=== PATIENT | male | born 1970 | race Caucasian/White ===

== ENCOUNTER 2016-07-12 09:55 | Outpatient (CLI) | payer BC ==
[2016-07-12 09:55] VITALS: BP 117/74
[~2016-07-12 09:55] MED LIST: ADVAIR 250/5028 PUFF IN; HYDROCODONE 7.51 TAB PO; LEVAQUIN500 MG PO; LEVOTHYROXIN0.075 M1 PO; LEVOTHYROXIN0.175 MG PO; PRAVASTATIN 20M20 MG PO; PREDNISONE 5MG.5 MG PO; Pepcid20 MG PO; SIMVASTATIN40 MG PO; SINGULAIR10 MG PO; THEO-24400 MG PO
== END 2016-07-12 10:40 | disposition home or self-care (01) ==
LOC: COP 09:55
DX: J45.909 Unspecified asthma, uncomplicated (principal)
CPT/HCPCS: J2357

== ENCOUNTER 2017-04-04 10:50 | Outpatient (CLI) | payer BC ==
[2017-04-04 12:04] VITALS: BP 118/71
== END 2017-04-04 12:17 | disposition home or self-care (01) ==
LOC: COP 10:50
DX: J45.909 Unspecified asthma, uncomplicated (principal)
CPT/HCPCS: J2357

== ENCOUNTER 2017-04-19 12:15 | Outpatient (CLI) | payer BC ==
[2017-04-19 11:25] VITALS: BP 110/67
== END 2017-04-19 12:35 | disposition home or self-care (01) ==
LOC: COP 12:15
DX: J45.909 Unspecified asthma, uncomplicated (principal)
CPT/HCPCS: J2357

== ENCOUNTER 2017-05-02 11:00 | Outpatient (CLI) | payer BC ==
[2017-05-02 11:45] VITALS: BP 101/68
== END 2017-05-02 12:00 | disposition home or self-care (01) ==
LOC: COP 11:00
DX: J45.909 Unspecified asthma, uncomplicated (principal)
CPT/HCPCS: J2357

== ENCOUNTER 2017-05-11 22:12 | Observation (INO) | payer BC ==
[~2017-05-11] VITALS: Ht 182.9 cm; Wt 105.0 kg
[2017-05-11 22:14] VITALS: BP 104/66
--- OUTSIDE RECORDS SUMMARY | 2017-05-11 22:18 | External Medical Summary Rpt | CCD ---
Demographics Preferred Language Iraqi Marital Status Unknown Orthodox Affiliation Unknown Race Unknown Ethnic Group Unknown Author Author , CORINE POOL Address Unknown Phone Immunization No patient found.
--- OUTSIDE RECORDS SUMMARY | 2017-05-11 22:18 | External Medical Summary Rpt | CCD ---
Author Author CORINE Address Unknown Phone Purpose Continuity of Care Document - 12-23-2016 through 2016
--- OUTSIDE RECORDS SUMMARY | 2017-05-11 22:18 | External Medical Summary Rpt | CCD ---
Author Author CORINE Address Unknown Phone [email or web address] Purpose Continuity of Care Document - 12-23-2016 through 2016
--- OUTSIDE RECORDS SUMMARY | 2017-05-11 22:18 | External Medical Summary Rpt | CCD ---
Demographics Preferred Language Rwandan Marital Status Unknown Confucianism Affiliation Unknown Race Unknown Ethnic Group Unknown Author Author , CORINE POOL Address Unknown Phone Immunization No patient found.
--- OUTSIDE RECORDS SUMMARY | 2017-05-11 22:18 | External Medical Summary Rpt | CCD ---
Author Author [employer] Organization [employer] Address Unknown Phone Unavailable Purpose Continuity of Care Document - through 2016
--- OUTSIDE RECORDS SUMMARY | 2017-05-11 22:19 | External Medical Summary Rpt ---
Author Author CORINE Jarquin, [employer] Organization [employer] Address Unknown Phone Unavailable Results Comprehensive metabolic 2000 panel in Serum or Plasma Observa Value Referen Units Interpr Notes Date tion ce etation Range Albumin/G 1.1 - 1.8 No Low No Dec 15 lobulin informati informati 2017 9:26 [Mass on in on in AM ratio] in source source Serum or data data Plasma Albumin 3.4 - 5.0 gm/dL Normal No Dec 15 [Mass/vol informati 2017 9:26 ume] in on in AM Serum or source Plasma data Alkaline 46 - 116 U/L Normal No Dec 15 phosphata informati 2017 9:26 se on in AM [Enzymati source c data activity/ volume] in Serum or Plasma Bilirubin 0.2 - 1.0 mg/dL Normal No Dec 15 .total informati 2017 9:26 [Mass/vol on in AM ume] in source Serum or data Plasma Urea 7 - 18 mg/dL Normal No Dec 15 nitrogen informati 2017 9:26 [Mass/vol on in AM ume] in source Serum or data Plasma Calcium 8.5 - mg/dL Normal No Dec 15 [Mass/vol 10.1 informati 2017 9:26 ume] in on in AM Serum or source Plasma data Chloride 98 - 107 mmoL/L Normal No Dec 15 [Moles/vo informati 2017 9:26 lume] in on in AM Serum or source Plasma data Carbon 21.0 - mmoL/L Normal No Dec 15 dioxide, 32.0 informati 2017 9:26 total on in AM [Moles/vo source lume] in data Serum or Plasma Creatinin 0.70 - mg/dL Normal No Dec 15 e 1.30 informati 2017 9:26 [Mass/vol on in AM ume] in source Serum or data Plasma Estimated >60 ML/MIN No REFERENCE Lucien 15 informati RANGE: 2017 9:26 glomerula on in >60 AM r source ML/MIN/1. filtratio data 73 SQUARE n rate METERSIf (GF this patient is -A merican, then multiply theresult by 1.210. Globulin 1.3 - 3.2 gm/dL High No Dec 15 [Mass/vol informati 2016 9:26 ume] in on in AM Serum source data Glucose 74 - 106 mg/dL Normal No Dec 15 [Mass/vol informati 2016 9:26 ume] in on in AM Serum or source Plasma data Potassium 3.5 - 5.1 mmoL/L Normal No Dec 23 informati 2016 9:26 [Moles/vo on in AM lume] in source Serum or data Plasma Sodium 136 - 145 mmoL/L Normal No Dec 15 [Moles/vo informati 2016 9:26 lume] in on in AM Serum or source Plasma data Aspartate 15 - 37 U/L Low No Dec 23 informati 2016 9:26 aminotran on in AM sferase source [Enzymati data c activity/ volume] in Serum or Plasma Alanine 12 - 78 U/L Normal No Dec 23 aminotran informati 2016 9:26 sferase on in AM [Enzymati source c data activity/ volume] in Serum or Plasma Protein 6.4 - 8.2 gm/dL Normal No Dec 15 [Mass/vol informati 2016 9:26 ume] in on in AM Serum or source Plasma data Lipid 1996 panel in Serum or Plasma Observa Value Referen Units Interpr Notes Date tion ce etation Range Cholester < 200 mg/dL No No Dec 15 ol informati informati 2016 9:26 [Moles/vo on in on in AM lume] in source source Unspecifi data data ed specimen Cholester 40 - 60 MG/DL Normal No Dec 23 ol in HDL informati 2016 9:26 on in AM [Mass/vol source ume] in data Serum or Plasma Cholester 0 - 130 mg/dL Normal No Dec 15 ol in LDL informati 2016 9:26 on in AM [Mass/vol source ume] in data Serum or Plasma by calcjulissa on Triglycer 30 - 200 mg/dL Normal No Dec 15 jennifer informati 2017 9:26 [Moles/vo on in AM lume] in source Serum or data Plasma Cholester 0 - 40 No Normal No Dec 15 ol in informati informati 2016 9:26 VLDL on in on in AM [Mass/vol source source ume] in data data Serum or Plasma Prostate specific Ag [Mass/volume] in Cerebral spinal fluid Observa Value Referen Units Interpr Notes Date tion ce etation Range Prostate 0.0 - 4.0 ng/mL Normal No Dec 23 specific informati 2016 9:26 Ag on in AM [Mass/vol source ume] in data Cerebral spinal fluid Thyrotropin [Units/volume] in Serum or Plasma Observa Value Referen Units Interpr Notes Date tion ce etation Range Thyrotrop 0.358 - uIU/ml No No Dec 23 in 3.740 informati informati 2016 9:26 [Units/vo on in on in AM lume] in source source Serum or data data Plasma
--- OUTSIDE RECORDS SUMMARY | 2017-05-11 22:19 | External Medical Summary Rpt ---
Author Author CROINE Jarquin, [employer] Organization [employer] Address [...]
--- NOTE | 2017-05-11 22:27 | Emergency Room Report ---
History of Present Illness Time Seen by [id number] Presenting Problem in Triage Pt arrived:Walked Presenting Problem:HAS HAD HEAVY COUGHING AND SOA TODAY. COUGHED "UNTIL HE PASSED OUT 5 OR 6 TIMES." Onset of symptoms date/time:05/11/1707/27/799 or onset unknown for: Treatment Prior to Arrival: [facility] Provided by: Sepsis Risk Assessment: Temp: 98.6 B/P: 104/66 MAP: 78 Pulse: 120 Resp: 22 Recent fever? N Clinical Suspician of Infection? N Mental Status: 1 - Regular (Normal Baseline) Sepsis Risk:Possible Sepsis Risk Have you (or family members/close friends) recently traveled outside the [place]? N If Yes, where/when: Have you had exposure to infectious disease within the past month? TB? Other? Specify: Source patient, RN notes reviewed, family, old records Exam Limitations no limitations Comment pt with sob and wheezing and had several post tussive syncopal episodes tonight- no def chest pain - no sz and no hemoptysis or rash - pt had had an episode in past and saw pcp- Cardiac Chest Pain Chest pain indicative of cardiac No Timing/Duration this evening Severity moderate ALLERGIES Coded Allergies: aspirin (CONTINUOUS SINUS DRAINAGE 12/16/15) Home Medications Reported Medications Simvastatin (Simvastatin 40MG Tab) 40 MG PO QHS Montelukast Sodium (Singulair) 10 MG PO QHS Levothyroxine Sodium (Levothyroxine 0.075MG) 150 MCG PO DAILY FLUTICASONE/SALMETEROL (Advair 250-50 Diskus) 1 PUFF IN BID Prednisone (Prednisone 5MG) 5 MG PO DAILY History Medical History General CAD? No Angina: No MS: No Hypertension? No Hyperlipidemia? Yes CHF? No DVT? No PE? No COPD? Yes Asthma? Yes Anemia? No GERD? No Gastric ulcers? No GI Bleed? No Hernia? No Thyroid Problems? Yes Hypothyroidism? Yes CVA? No Seizures? No Diabetes? No Renal Insuffiency? No End Stage Renal Disease? No UTI? No Stones? Yes BPH? No GB Disease: No Nephritic Syndrome? No Asplenia? No Hepatitis? No Sickle Cell Disease? No Arthritis? No Migraines? No Cataracts? No Glaucoma? No MRSA? No HIV? No TB? No Anxiety? No Depression? No Cancer? No Immunization Hx DT/Tetanus 5-10 YRS Flu THISFLUSEA Pneumonia 09/11/11 Surgical Hx Previous Surgery?Y Back KIDNEY STONES Family History Family Hx Diabetes No CAD No Hypertension No Hyperlipidemia No Cancer No TB No Social History Smoking Hx Smoker: Current Every Day Smoker Tobacco: Yes Type Cigarettes Packs/day 1 1/2 - 2 Packs Alcohol Alcohol: No Drugs none Review of Systems All Other Systems Reviewed and Negative Constitutional denies fever Eyes denies drainage ENT denies: ear discharge, epistaxis, throat pain. Respiratory cough, shortness of breath, denies wheezing Cardiovascular see HPI, denies chest pain, denies palpitations, syncope Gastrointestinal denies abdominal pain, denies diarrhea, denies vomiting Genitourinary denies: dysuria, frequency, hesitancy, hematuria. Musculoskeletal denies back pain, denies joint pain, denies joint swelling, denies neck pain Skin denies rash Psychiatric/Neurological denies headache, denies seizure Physical Exam Vital Signs Vital Signs Date Time Temp Pulse Resp B/P Pulse O2 O2 Flow FiO2 Ox Delivery Rate 05/12 0018 91 20 138/79 92 05/11 2341 91 20 142/74 94 05/11 2306 120 20 140/74 91 05/11 2239 105 20 130/78 91 05/11 2214 98.6 120 22 104/66 87 - WBC >12,000 or <4,000 or 10% bands? 2 or more SIRS Criteria Met? B/P:138/79 MAP:78 Creatinine >2.0? UA output<0.5ml/kg/hr for 2 hrs? Platelet count >100,000? Lactate >2.0mmol/1? INR >1.2 or PTT > than 60 sec? Evidence of Organ Dysfunction? Provider documented clinical suspician of infection? N Sepsis Criteria Count: 2 Sepsis Risk: Possible Sepsis Risk General Appearance no apparent distress Eye Exam - bilateral eye PERRL, bilateral eye EOMI Ear, Nose, Throat normal ENT inspection Neck supple Respiratory Status No: respiratory distress. Lung Sounds bilateral: decreased breath sounds, rhonchi, wheezing. 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 No Results/Orders Laboratory Tests 05/11/172231: Influenza Type A Ag NOT DETECTED, Influenza Type B Ag NOT DETECTED 05/11/172219: Lactic Acid 1.2 05/11/172219: B-Natriuretic Peptide 10 05/11/172219: Sodium 136, Potassium 3.6, Chloride 101, Carbon Dioxide 29, BUN 17, Creatinine 1.1, Estimated Creat Clear 123, Estimated GFR (MDRD) 71, Glucose 147 H, Calcium 8.8, Total Bilirubin 0.4, AST 18, ALT 25, Alkaline Phosphatase 81, Creatine Kinase 102, CK-MB (CK-2) Rel Index 0.6, CK and CKMB Interp 0.6, Troponin I < 0.02, Total Protein 7.7, Albumin 3.8, Globulin 3.9 H, Albumin/Globulin Ratio 1.0 L, D-Dimer 253, WBC 12.6 H, RBC 4.72, Hgb 14.2, Hct 42.5, MCV 90.1, RDW 13.1, Plt Count 257, MPV 8.3, Gran % 81.2 H, Gran # 10.3 H, Lymphocytes % 11.2 , Monocytes % 6.2, Eosinophils % 1.1, Basophils % 0.2, Lymphocytes # 1.4, Monocytes # 0.8, Eosinophils # 0.1, Basophils # 0.0, PUBS MCHC 33.4, MCH 30.1 Current Medication Orders Sig/Fan Start time Last Medication Dose Route Stop Time Status Admin Azithromycin 500 MG ONCE ONE 05/12 45 AC Sodium Chloride 250 ML IV 05/12 144 Ceftriaxone Sodium 1 GM ONCE ONE 05/12 45 AC 05/12 Sodium Chloride 50 ML IV 05/12 Methylprednisolone 125 MG ONCE ONE 05/12 45 AC 05/12 Sodium Succinate IV 05/12 Ceftriaxone Sodium 0 .STK-MED ONE 05/12 40 DC IV Methylprednisolone 0 .STK-MED ONE 05/12 40 DC Sodium Succinate .ROUTE Sodium Chloride 50 ML .STK-MED ONE 05/12 40 DC IV Furosemide 40 MG ONCE ONE 05/11 2300 DC 05/11 IV 11/01 2301 2302 Furosemide 0 .STK-MED ONE 05/11 2259 DC .ROUTE Sodium Chloride 1,000 ML .STK-MED ONE 05/11 2231 DC IV Sodium Chloride 1,000 ML .Q4H 05/11 2230 AC 05/11 IV 05/12 229 2237 Sodium Chloride 10 ML PRN PRN 05/11 2230 AC IV 05/12 2230 Orders Procedure Date/time Status UPPER RESPIRATORY PANEL, PCR 05/12 0042 Active Decision to admit 05/12 33 Active BRAIN NATRIURETIC PEPTIDE 05/11 2258 Complete D-DIMER 05/11 2245 Complete INFLUENZA A&B ANTIGENS 05/11 2227 Complete ELECTROCARDIOGRAM REQUEST 05/11 2220 Active CHEST(2 VIEWS-NOT PORTABLE) 05/11 2220 Active IV SALINE LOCK 05/11 2220 Active CULTURE, BLOOD 05/11 2220 Active LACTIC ACID 05/11 2220 Complete CBC WITH AUTO DIFF 05/11 2220 Complete CARDIAC ENZYMES 05/11 2220 Complete CHEM 12 PROFILE 05/11 2220 Complete CM/EKG 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 ST/Twave chgs XRAY/CT/US XRAY/CT/US XRAY chest XR interpretation by reviewed by me Xray Results abnormal (vol overlode and rt cap) Departure Departure Time of Disposition 0018 Disposition Still a Patient Clinical Impression Primary Impression: CAP (community acquired pneumonia) Qualifiers: Laterality: right Lung location: lower lobe of lung Qualified Code: J18.1 - Lobar pneumonia, unspecified organism Secondary Impressions: Post-tussive syncope Condition STABLE Referrals LISANDRO ROBERTS (Family) discussed with dr velazco ED Critical Care Critical Care No at 0045
[2017-05-11 22:36] LABS: HEMOGLOBIN 14.2 g/dL (14.1-18.0); LYMPH # 1.4 K/mm3 (0.7-4.5); LYMPH % 11.2 % (10-50)
[2017-05-11 22:59] LABS: BUN 17 mg/dL (7-18)
[2017-05-11 23:00] LABS: GFR (ESTIMATED) 71 ML/MIN (>60)
--- OUTSIDE RECORDS SUMMARY | 2017-05-12 00:42 | External Medical Summary Rpt | CCD ---
Author Author , CORINE Organization CORINE Address Unknown Phone [email or web address] Purpose Continuity of Care Document - 12-23-2016 through 2016 Results Labs Lab Lab Date Result Refere Interp Status Commen Order Detail nces retati t Range on Influenza A and B virus antigen assay (05-11-2017 22:32) Influen NOT NOT complet za A ag 017 DETECTE DETECTD ed QL 22:32 D NOT DETECTE D L Comment: Influen NOT NOT complet za 017 DETECTE DETECTD ed virus B 22:32 D NOT DETECTE antigen D L detecti on Influenza virus A+B Ag [Presence] in Unspecified specimen (05-11-2017 22:32) Influen NOT NOT complet za 017 DETECTE DETECTD ed virus A 22:32 D Ag [Presen ce] in Unspeci fied specime n Influen NOT NOT complet za 017 DETECTE DETECTD ed virus B 22:32 D Ag [Presen ce] in Unspeci fied specime n Brain natriuretic peptide (05-11-2017 22:20) Brain = 10 0-100 complet natriur 017 pg/mL ed etic 22:20 peptide D-dimer (05-11-2017 22:20) D-dimer = 253 0-400 complet 017 ng/mL ed 22:20 Comment: The D-Dimer values are presented in units of mass(ng/mL) of Comment: D-Dimer units(DDU). Comment: Comment: This test has been FDA approved as an aid in the assessment Comment: and evaluation of suspected DIC, and thromboembolic events Comment: including PE and DVT. However, it does not have approval Comment: for cut-off values for the exclusion of these conditions. Comprehensive metabolic panel (05-11-2017 22:20) Protein = 7.7 6.4-8.2 complet total 017 gm/dL ed ser/celina 22:20 s ALT = 25 12-78 complet (SGPT) 017 U/L ed ser/celina 22:20 s Serum = 18 15-37 complet or 017 U/L ed plasma 22:20 asparta te aminotr ansfera Serum = 136 136-145 complet sodium 017 mmoL/L ed measure 22:20 ment Serum = 3.6 3.5-5.1 complet potassi 017 mmoL/L ed um 22:20 measure ment Serum = 147 74-106 complet or 017 mg/dL ed plasma 22:20 glucose measure ment (mas Serum = 3.9 1.3-3.2 complet globuli 017 gm/dL ed n 22:20 measure ment (mass/v olume) Estimat = 71 >60 complet ed 017 ML/MIN ed glomeru 22:20 lar filtrat ion rate (GF Comment: REFERENCE RANGE: >60 ML/MIN/1.73 SQUARE METERS Comment: If this patient is -[place], then multiply the Comment: result by 1.210. Estimat = 123 50-200 complet ion of 017 ML/MIN ed creatin 22:20 ine renal clearan ce Serum = 1.1 0.70-1. complet or 017 mg/dL 30 ed plasma 22:20 creatin ine measure ment ( Carbon = 29 21.0-32 complet dioxide 017 mmoL/L .0 ed 22:20 measure ment Serum = 101 98-107 complet or 017 mmoL/L ed plasma 22:20 chlorid e measure ment (mo Serum = 8.8 8.5-10. complet or 017 mg/dL 1 ed plasma 22:20 calcium measure ment (mas Serum = 17 7-18 complet or 017 mg/dL ed plasma 22:20 urea nitroge n measure men Serum = 0.4 0.2-1.0 complet or 017 mg/dL ed plasma 22:20 total bilirub in measure m Serum = 81 46-116 complet or 017 U/L ed plasma 22:20 alkalin e phospha tase floresita Serum = 3.8 3.4-5.0 complet or 017 gm/dL ed plasma 22:20 albumin measure ment (mas Serum = 1.0 1.1-1.8 complet or 017 ed plasma 22:20 albumin /globul in mass ra Cardiac enzymes (05-11-2017 22:20) Serum < 0.02 0.00-0. complet or 017 ng/mL 06 ed plasma 22:20 troponi n i.cardi ac measu Serum = 102 39-308 complet or 017 U/L ed plasma 22:20 creatin e kinase measure m Serum = 0.6 0.0-3.6 complet or 017 ng/mL ed plasma 22:20 creatin e kinase MB measu Serum = 0.6 0-4.0 complet or 017 U/L ed plasma 22:20 creatin e kinase MB (CK-M Blood lactic acid measurement (moles/vol (05-11-2017 22:20) Blood = 1.2 0.4-2.0 complet lactic 017 mmol/L ed acid 22:20 measure ment (moles/ vol CBC w auto diff (05-11-2017 22:20) Absolut = 0.8 0.1-1.0 complet e 017 K/mm3 ed monocyt 22:20 e count Automat = 90.1 82.2-97 complet ed 017 fl .8 ed erythro 22:20 cyte mean corpusc ular v Automat = 33.4 31.8-35 complet ed 017 g/dl .4 ed erythro 22:20 cyte mean corpusc ular h Mean = 30.1 27-31.2 complet corpusc 017 pg ed ular 22:20 hemoglo bin (MCH) determ Lymphoc = 11.2 10-50 complet yte 017 % ed count, 22:20 blood, automat ed Absolut = 1.4 0.7-4.5 complet e 017 K/mm3 ed lymphoc 22:20 yte count Blood = 14.2 14.1-18 complet hemoglo 017 g/dL .0 ed bin 22:20 measure ment (mass/v olum Blood = 42.5 42.0-52 complet hematoc 017 % .0 ed rit 22:20 (volume fractio n) Granulo = 81.2 37.0-80 complet cyte 017 % .0 ed percent 22:20 age Blood = 10.3 1.3-8.0 complet granulo 017 K/mm3 ed cytes 22:20 automat ed count (numb Automat = 1.1 % 0.1-12. complet ed 017 0 ed blood 22:20 eosinop hils/10 0 leukocy t Automat = 0.1 0.0-0.4 complet ed 017 K/mm3 ed blood 22:20 eosinop hil count Baso % = 0.2 % 0.1-2.0 complet 017 ed 22:20 Automat = 0.0 0-0.2 complet ed 017 K/MM3 ed blood 22:20 basophi l count (count/ vo Blood = 12.6 4.8-10. complet leukocy 017 K/MM3 8 ed courtney 22:20 count (number /volume ) Automat = 13.1 11.5-17 complet ed 017 % .5 ed erythro 22:20 cyte distrib ution width Red = 4.72 4.6-6.2 complet blood 017 M/mm3 ed cell 22:20 count Blood = 257 142-424 complet platele 017 K/mm3 ed t count 22:20 Automat = 8.3 7.4-10. complet ed 017 fl 4 ed blood 22:20 platele t mean volume floresita Kingsbury % = 6.2 % 1.7-9.3 complet 017 ed 22:20
--- OUTSIDE RECORDS SUMMARY | 2017-05-12 00:42 | External Medical Summary Rpt | CCD ---
Author Author , CORINE Organization CORINE Address Unknown Phone [email or web address] Purpose Continuity of Care Document - [...] SQUARE METERS Comment: If this patient is -[place] Citizen, then multiply the Comment: result by 1.210. [...] blood 22:20 platele t mean volume floresita Braxton % = 6.2 % 1.7-9.3 complet 017 ed 22:20
--- OUTSIDE RECORDS SUMMARY | 2017-05-12 00:43 | External Medical Summary Rpt | CCD ---
Demographics Preferred Language Lebanese Marital Status Unknown Buddhism Affiliation Unknown Race Unknown Ethnic Group Unknown Author Author , CORINE POOL Address Unknown Phone Immunization No patient found.
--- OUTSIDE RECORDS SUMMARY | 2017-05-12 00:43 | External Medical Summary Rpt ---
Author Author [employer], [employer] Organization [employer] Address Unknown Phone Unavailable Results Influenza virus A+B Ag [Presence] in Unspecified specimen Observa Value Referen Units Interpr Notes Date tion ce etation Range Influen NOT NOT No No Nov za DETECTE DETECTD informa informa 2017 virus A D tion in tion in 10:32 Ag source source PM [Presen data data ce] in Unspeci fied specime n Influen NOT NOT No No No Nov za DETECTE DETECTD informa informa informa 2017 virus B D tion in tion in tion in 10:32 Ag source source source PM [Presen data data data ce] in Unspeci fied specime n Natriutietic peptide B [Mass/volume] in Serum or Plasma Observa Value Referen Units Interpr Notes Date tion ce etation Range Natriutie 0 - 100 pg/mL Normal No Nov 1 tic informati 2017 peptide B on in 10:20 PM source [Mass/vol data ume] in Serum or Plasma Fibrin D-dimer FEU [Mass/volume] in Platelet poor plasma Observa Value Referen Units Interpr Notes Date tion ce etation Range Fibrin 0 - 400 ng/mL Normal The May 11 D-dimer D-Dimer 2017 FEU values 10:20 PM [Mass/vol are ume] in presented Platelet in units poor of plasma mass(ng/m L) ofD-Dimer units(DDU ).This test has been FDA approved as an aid in the assessmen tand evaluatio n of suspected DIC, and thromboem bolic eventsinc luding PE and DVT. However, it does not have approvalf or cut-off values for the exclusion of these condition s. Lactate [Moles/volume] in Blood Observa Value Referen Units Interpr Notes Date tion ce etation Range Lactate 0.4 - 2.0 mmol/L Normal No Nov 1 [Moles/vo informati 2017 lume] in on in 10:20 PM Blood source data CBC W Auto Differential panel in Blood Observa Value Referen Units Interpr Notes Date tion ce etation Range Basophils 0 - 0.2 K/MM3 Normal No May 1 2016 [#/volume on in 10:20 PM ] in source Blood by data Automated count Basophils 0.1 - 2.0 % Normal No May 11 /100 inform2016 leukocyte on in 10:20 PM s in source Blood by data Automated count Eosinophi 0.0 - 0.4 K/mm3 Normal No May 11 ls 2016 [#/volume on in 10:20 PM ] in source Blood by data Automated count Eosinophi 0.1 - % Normal No May 11 ls/100 12.0 inform2016 leukocyte on in 10:20 PM s in source Blood by data Automated count Granulocy 1.3 - 8.0 K/mm3 High No May 11 courtney 2016 [#/volume on in 10:20 PM ] in source Blood by data Automated count Granulocy 37.0 - % High No May 11 courtney/100 80.0 2016 leukocyte on in 10:20 PM s in source Blood by data Automated count Hematocri 42.0 - % Normal No May 11 t [Volume 52.0 2016 on in 10:20 PM Fraction] source of Blood data Hemoglobi 14.1 - g/dL Normal No May 11 n 18.0 2016 [Mass/vol on in 10:20 PM ume] in source Blood data Lymphocyt 0.7 - 4.5 K/mm3 Normal No May 11 es 2016 [#/volume on in 10:20 PM ] in source Unspecifi data ed specimen by Automated count Lymphocyt 10 - 50 % Normal No May 11 es 2016 [#/volume on in 10:20 PM ] in source Unspecifi data ed specimen by Automated count Erythrocy 27 - 31.2 pg Normal No May 11 te mean 2016 corpuscul on in 10:20 PM ar source hemoglobi data n [Entitic mass] Erythrocy 31.8 - g/dl Normal No May 11 te mean 35.4 inform2016 corpuscul on in 10:20 PM ar source hemoglobi data n concentra tion [Mass/vol ume] by Automated count Erythrocy 82.2 - fl Normal No May 11 te mean 97.8 inform2016 corpuscul on in 10:20 PM ar volume source [Entitic data volume] by Automated count Monocytes 0.1 - 1.0 K/mm3 Normal No May 11 informati 2016 [#/volume on in 10:20 PM ] in source Blood by data Automated count Monocytes 1.7 - 9.3 % Normal No May 1 /100 informati 2017 leukocyte on in 10:20 PM s in source Blood by data Automated count Platelet 7.4 - fl Normal No May 11 mean 10.4 informati 2016 volume on in 10:20 PM [Entitic source volume] data in Blood by Automated count Platelets 142 - 424 K/mm3 Normal No May 11 informati 2016 [#/volume on in 10:20 PM ] in source Blood data Erythrocy 4.6 - 6.2 M/mm3 Normal No May 11 courtney informati 2016 [#/volume on in 10:20 PM ] in source Amniotic data fluid Erythrocy 11.5 - % Normal No May 11 te 17.5 informati 2016 distribut on in 10:20 PM ion width source [Entitic data volume] by Automated count Leukocyte 4.8 - K/MM3 High No May 11 s 10.8 informati 2016 [#/volume on in 10:20 PM ] in source Blood data Comprehensive metabolic 2000 panel in Serum or Plasma Observa Value Referen Units Interpr Notes Date tion ce etation Range Albumin/G 1.1 - 1.8 No Low No Dec 15 lobulin informati informati 2016 9:26 [Mass on in on in AM ratio] in source source Serum or data data Plasma Albumin 3.4 - 5.0 gm/dL Normal No Dec 23 [Mass/vol informati 2016 9:26 ume] in on in AM Serum or source Plasma data Alkaline 46 - 116 U/L Normal No Dec 15 phosphata informati 2016 9:26 se on in AM [Enzymati source [...] Calcium 8.5 - mg/dL Normal No Dec 23 [Mass/vol 10.1 informati 2017 9:26 ume] in on in AM Serum or source Plasma data Chloride 98 - 107 mmoL/L Normal No Dec 15 [Moles/vo informati 2016 9:26 lume] in on in AM Serum or source Plasma data Carbon 21.0 - mmoL/L Normal No Dec 23 dioxide, 32.0 informati 2016 9:26 total on in AM [Moles/vo source lume] in data Serum or Plasma Creatinin 0.70 - mg/dL Normal No Dec 23 e 1.30 informati 2016 9:26 [Mass/vol on in AM ume] in source Serum or data Plasma Estimated >60 ML/MIN No REFERENCE Dec 23 informati RANGE: 2017 9:26 glomerula on in >60 AM r source ML/MIN/1. filtratio data 73 SQUARE n rate METERSIf (GF this patient is -A merican, then multiply theresult by 1.210. Globulin 1.3 - 3.2 gm/dL High No Dec 23 [Mass/vol informati 2016 9:26 ume] in on [...] Cholester < 200 mg/dL No No Dec 23 ol informati informati 2016 9:26 [Moles/vo on in on in AM lume] in source source Unspecifi data data ed specimen Cholester 40 - 60 MG/DL Normal No Dec 15 ol in HDL informati 2016 9:26 on in AM [Mass/vol source ume] in data Serum or Plasma Cholester 0 - 130 mg/dL Normal No Dec 15 ol in LDL informati 2016 9:26 on in AM [Mass/vol source ume] in data Serum or Plasma by calculati on Triglycer 30 - 200 mg/dL Normal No Dec 15 jennifer informati 2016 9:26 [Moles/vo on in AM [...] 0.0 - 4.0 ng/mL Normal No Dec 15 specific informati 2016 9:26 Ag on in AM [Mass/vol source ume] in data Cerebral spinal fluid Thyrotropin [Units/volume] in Serum or Plasma Observa Value Referen Units Interpr Notes Date tion ce etation Range Thyrotrop 0.358 - uIU/ml No No Dec 15 in 3.740 informati informati 2017 9:26 [Units/vo on in on in AM lume] in source source Serum or data data Plasma
--- OUTSIDE RECORDS SUMMARY | 2017-05-12 00:43 | External Medical Summary Rpt | CCD ---
Demographics Preferred Language Mozambican Marital Status Unknown Yazidism Affiliation Unknown Race Unknown Ethnic Group Unknown Author Author , [facility] [employer] Address Unknown Phone Immunization No patient found.
[2017-05-12 00:50] LABS: CORONAVIRUS 229E NOT DETECTED (NOT DETECTE); CORONAVIRUS HKU 1 NOT DETECTED (NOT DETECTE); CORONAVIRUS NL63 NOT DETECTED (NOT DETECTE); CORONAVIRUS OC43 NOT DETECTED (NOT DETECTE)
[2017-05-12 01:18] VITALS: BP 115/72
[2017-05-12 01:28] VITALS: BP 116/74
[2017-05-12 04:17] VITALS: BP 121/52
[2017-05-12 06:13] LABS: RHINOVIRUS/ENTEROVIRUS DETECTED (NOT DETECTE)
--- NOTE | 2017-05-12 06:26 | RADIOLOGY REPORT PS360 ---
CHEST(2 VIEWS-NOT PORTABLE) HISTORY: SOB ORDERING PHYSICIAN: Elina Paulino MD PATIENT AGE: 47 years COMPARISON: None available FINDINGS: The cardiomediastinal silhouette and pulmonary vascularity are within normal limits. The lungs are clear without infiltrates, suspicious nodules, or pleural effusions. There is mild coarsening of the bronchovascular markings suggesting peribronchial inflammatory changes. No acute bony abnormalities. IMPRESSION: Nonspecific coarsening of the bronchovascular markings which may be seen with air bronchial inflammatory change/bronchitis. No lobar consolidation or collapse
[2017-05-12 07:28] VITALS: BP 97/55
[2017-05-12 07:38] LABS: HEMOGLOBIN 13.6 g/dL (14.1-18.0); LYMPH # 0.9 K/mm3 (0.7-4.5); LYMPH % 11.1 % (10-50)
--- NOTE | 2017-05-12 07:48 | PHARMACY CLINIC NOTE ---
Patient Demographics Patient Demographics Admission date: 05/12/17 Date: 05/12/17 Time: 0747 Allergies Coded Allergies: aspirin (CONTINUOUS SINUS DRAINAGE 12/16/15) HEIGHT- FT: 6 IN: 0.00 K.951 VTE General Information Labs: Laboratory Tests 05/12 05/11 0701 2220 Hematology Hgb (14.1 - 18.0 g/dL) 13.6 L 14.2 Hct (42.0 - 52.0 %) 42.0 42.5 Plt Count (142 - 424 K/mm3) 239 257 Disclaimer The following section includes nursing documentation that has been pulled in for pharmacy review. Patient's VTE score: 3 Patient's VTE Risk: LOW RISK Clinical trial participant? No VTE prophylaxis [id number] VTE prophylaxis ordered? Yes Type of prophylaxis/treatment: DAGO at 0748
[2017-05-12 08:12] LABS: BUN 15 mg/dL (7-18)
[2017-05-12 08:24] LABS: GFR (ESTIMATED) 79 ML/MIN (>60)
[2017-05-12] MEDS ORDERED: AZELASTINE137 MCG/SP (08:52)
[2017-05-12] MEDS ORDERED: XYZAL5 MG PO (08:52)
[2017-05-12] MEDS ORDERED: ADVAIR DISK28 PUFFS IN (08:52)
[2017-05-12] MEDS ORDERED: XOLAIR150 MG SC (08:53)
[2017-05-12] MEDS ORDERED: ALBUTEROL2.5 MG/NEB INH (08:53)
--- NOTE | 2017-05-12 08:58 | HISTORY AND PHYSICAL REPORT ---
See Addendum History and Physical ([facility]CA) Date of admission: 05/12/17 Chief complaint: SOA History: History of Present Illness: Mr. Brooks is a 47-year-old male with a history of severe asthma that is followed by Dr. Beltran in [place]. He states approx 3 days ago he began getting sinus drainage. By the next, day his chest was congested. Yesterday afternoon he tried taking neb treatments and began coughing and passed out approximately 5 times, therefore he presented to the emergency room. He he is on chronic steroids for his asthma and he states he did take approximately 60 mg of steroids before he left his house. He was also given IV steroids in the emergency room along with a neb treatment and this helped tremendously. He states he feels much better this morning and has not passed out. His coughing has improved as has his wheezing and he is anxious to go home. He had a respiratory panel that was positive for rhino/enterovirus. He was started on some Zithromax when admitted. Past Medical History: Medical History: CAD? No Angina: No TN: No Hypertension? No Hyperlipidemia? Yes CHF? No DVT? No PE? No COPD? Yes Asthma? Yes Anemia? No GERD? No Gastric ulcers? No GI Bleed? No Hernia? No Thyroid Problems? Yes Hypothyroidism? Yes CVA? No Seizures? No Diabetes? No Renal Insuffiency? No UTI? No Stones? Yes BPH? No GB Disease: No Nephritic Syndrome? No Asplenia? No Hepatitis? No Sickle Cell Disease? No Arthritis? No Migraines? No Cataracts? No Glaucoma? No MRSA? No HIV? No TB? No Anxiety? No Depression? No Cancer? No Surgical history: Previous Surgery?Y BACK KIDNEY STONES Medications: Reported Medications Simvastatin (Simvastatin 40MG Tab) 40 MG PO QHS Montelukast Sodium (Singulair) 10 MG PO QHS LEVOCETIRIZINE DIHYDROCHLORIDE (Xyzal) 5 MG PO QHS Azelastine Hcl (Azelastine Nasal [place]) 1 SPR NA DAILY FLUTICASONE/SALMETEROL (Advair 500-50 Diskus) 1 PUFF IN BID Omalizumab (Xolair) 150 MG SC Q2 WEEKS ALBUTEROL (Albuterol 0.083% Neb) 2.5 MG INH QID,PRN Prednisone (Prednisone 5MG) 5 MG PO DAILY Allergies: Coded Allergies: NSAIDS (Non-Steroidal Anti-Inflamma (05/12/17) aspirin (CONTINUOUS SINUS DRAINAGE 12/16/15) Family History: Family history: Negative for: CAD, DM, HTN, cancer, hyperlipidemia, stroke. Social History: Smoking Hx Tobacco: Yes Smoker: Current Every Day Smoker Type: Cigarettes Packs/day: < 1 Pack Are you exposed to second hand No Alcohol: Alcohol: No Hx of Drug Use: Drug Use? No Review of Systems: Constitutional Positive for: fatigue, lethargy, malaise, weak. ENT Positive for: nasal congestion, sore throat. Cardiovascular Positive for: chest pain. No: edema, palpitations. Respiratory Positive for: shortness of air, wheezing. No: productive cough (sputum). GI No: abdominal pain, diarrhea, nausea, vomitting. (male) No: frequency, hematuria. Neurological Positive for: syncope. No: dizziness, headache, seizure, weakness. Musculoskeletal No: extremity pain, joint pain, myalgias. Physical Exam: Vital signs: 1ST Vital Signs Result Date Time Pulse Ox 87 05/11 2214 B/P 104/66 05/11 2214 Temp 98.6 05/11 2214 Pulse 120 05/11 2214 Resp 22 05/11 2214 O2 Delivery ROOM AIR 05/12 011 O2 Flow Rate 2 05/12 0200 Exam: General appearance: alert, awake, no acute distress Eyes: EOM's w/normal ROM, PERRLA ENT: mucous membranes moist, nose normal, pharynx normal, tympanic membranes normal Neck: non-tender, no carotid bruit, full range of motion, supple Cardiovascular: regular rate & rhythm Respiratory: faint expiratory wheezes, no rales, good air movement ABD: non-distended, normal bowel sounds, no rebound, soft, no tenderness, no guarding Extremities: no peripheral edema Musculoskeletal: equal muscle strength, motor intact, sensation intact Skin: normal color 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, normal mood/affect, oriented, speech clear Lab data: Labs: Laboratory Tests 05/12/17 0701: Sodium 137, Potassium 3.8, Chloride 103, Carbon Dioxide 27, BUN 15, Creatinine 1.0, Estimated Creat Clear 133, Estimated GFR (MDRD) 79, Glucose 155 H, Calcium 8.7, Troponin I < 0.02, TSH 0.29 L, Thyroxine (T4) 9.1, WBC 7.9, RBC 4.57 L, Hgb 13.6 L, Hct 42.0, MCV 92.0, RDW 13.2, Plt Count 239, MPV 8.7, Gran % 87.1 H, Gran # 6.9, Lymphocytes % 11.1, Monocytes % 1.4 L, Eosinophils % 0.3, Basophils % 0.1, Lymphocytes # 0.9, Monocytes # 0.1, Eosinophils # 0.0, Basophils # 0.0, PUBS MCHC 32.5, MCH 29.9 05/12/17 0038: Chlamy pneum (TEM-PCR) NOT DETECTED, Adenovirus (PCR) NOT DETECTED, B. pertussis DNA (PCR) NOT DETECTED, Coronavirus OC43 (PCR) NOT DETECTED, Coronavirus HKU1 ( PCR) NOT DETECTED, Coronavirus 229E (PCR) NOT DETECTED, Coronavirus NL63 (PCR) NOT DETECTED, Human Metapneumovir PCR NOT DETECTED, Influenza A (H1) PCR NOT DETECTED, Influ A (H1N1/09) PCR NOT DETECTED, Influenza A (H3) PCR NOT DETECTED, Influenza Type A (PCR) NOT DETECTED, Influenza Type B (PCR) NOT DETECTED, M. pneumoniae (PCR) NOT DETECTED, Parainfluenza 1 (PCR) NOT DETECTED, Parainfluenza 2 (PCR) NOT DETECTED, Parainfluenza 3 (PCR) NOT DETECTED, Parainfluenza 4 (PCR) NOT DETECTED, RSV (PCR) NOT DETECTED, Entero/Rhino (PCR) DETECTED H 05/11/172231: Influenza Type A Ag NOT DETECTED, Influenza Type B Ag NOT DETECTED 05/11/172219: Lactic Acid 1.2 05/11/170: B-Natriuretic Peptide 10 05/11/17 2220: Sodium 136, Potassium 3.6, Chloride 101, Carbon Dioxide 29, BUN 17, Creatinine 1.1, Estimated Creat Clear 123, Estimated GFR (MDRD) 71, Glucose 147 H, Calcium 8.8, Total Bilirubin 0.4, AST 18, ALT 25, Alkaline Phosphatase 81, Creatine Kinase 102, CK-MB (CK-2) Rel Index 0.6, CK and CKMB Interp 0.6, Troponin I < 0.02, Total Protein 7.7, Albumin 3.8, Globulin 3.9 H, Albumin/Globulin Ratio 1.0 L, D-Dimer 253, WBC 12.6 H, RBC 4.72, Hgb 14.2, Hct 42.5, MCV 90.1, RDW 13.1, Plt Count 257, MPV 8.3, Gran % 81.2 H, Gran # 10.3 H, Lymphocytes % 11.2 , Monocytes % 6.2, Eosinophils % 1.1, Basophils % 0.2, Lymphocytes # 1.4, Monocytes # 0.8, Eosinophils # 0.1, Basophils # 0.0, PUBS MCHC 33.4, MCH 30.1 Microbiology 05/11 2220 BLOOD: Anaerobic Blood Culture - RECD 05/11 2220 BLOOD: Aerobic Blood Culture - RECD 05/11 2220 BLOOD: Anaerobic Blood Culture - RECD 05/11 2220 BLOOD: Aerobic Blood Culture - RECD Radiology results: Results: CXR - Nonspecific coarsening of the bronchovascular markings which may be seen with air bronchial inflammatory change/bronchitis. No lobar consolidation or collapse Diagnosis(es): 1. Post-tussive syncope Status: Acute 2. Acute asthma exacerbation Status: Acute 3. Rhinovirus infection Status: Acute Plan: Pt has rhino/enterovirus which seems to have caused an exacerbation of his asthma. After steroids and nebulizer treatments he feels much better. He can possibly be discharged home today on steroids and nebs. at 0858 at 1006
[2017-05-12] MEDS ORDERED: LEVOTHYROXINE0.15 MG PO (10:32)
[2017-05-12 11:40] VITALS: BP 101/68
[2017-05-12 12:05] LABS: CORRECTED WBC 7.8 K/mm3; NEUTROPHILS 88 % (42-76)
[2017-05-12] MEDS ORDERED: PREDNISONE 20MG20 MG PO (13:19)
[2017-05-12 14:00] VITALS: BP 101/68
--- NOTE | 2017-05-12 17:45 | RADIOLOGY REPORT PS360 ---
PROCEDURE: 2-D M-mode and color Doppler study INDICATIONS FOR THE TEST: Chest pain COPD Heart MurmurX Tobacco SmokingX Palpitations Fatigue Syncope Edema Hypertension Diabetes Mellitus Rheumatic Fever SOBXDOE Obesity Hyperlipidemia Family History HD Additional History PATIENT INFORMATION HEIGHT: 72 WEIGHT:236 GENDER: Male B/P:104/66 2-D/M-MODE INTERPRETATION: 2-D MEASUREMENTS OBSERVED VALUES IN CMS Right Ventricular Dimension (RVDd) 2.3 Interventricular Septum (Thickness)(IVsd) .9 Left Ventricular Internal Dimensions(LVIDd) 5.5 Left Ventricular Posterior Wall (Thickness)(LVPWd) .9 Aortic Root 3.6 Aortic Cusp Separation 2.0 Left Atrial Dimensions (LAD) 3.1 2D 1. Left atrium is normal size, left ventricle is normal size, there is no concentric left ventricular hypertrophy, visually estimated ejection fraction 55% with no obvious regional wall motion abnormality. 2. The right atrium and right ventricle are normal size and contractility. 3. The aortic, mitral and tricuspid valve are grossly normal. 4. The pulmonic valve is poorly visualized. 6. No significant pericardial effusion noted. DOPPLER INTERROGATION: Doppler interrogation of the aortic, mitral and tricuspid valve reveals presence of trace mitral and tricuspid regurgitation, tricuspid and jet velocity insufficient for calculation of the right ventricular systolic pressure, diastolic parameters are within normal range. CONCLUSION: 1. Normal left ventricular size, preserved left ventricular systolic function, visually estimated ejection fraction 55% with no obvious regional wall motion abnormality, diastolic parameters are within normal range. 2. Trace mitral and tricuspid regurgitation. 3. No significant pericardial effusion noted.
--- NOTE | 2017-05-16 16:07 | DISCHARGE SUMMARY STANDARD ---
Discharge Summary (FCA2) Date of admission: 05/12/17 Date of discharge: 05/12/17 Problem List: 1. Post-tussive syncope 2. Acute asthma exacerbation 3. Rhinovirus infection History of present illness: Mr. Brooks is a 47-year-old male with a history of severe asthma that is followed by Dr. Beltran in [place]. He states approx 3 days prior to admission he began getting sinus drainage. By the next, day his chest was congested. He tried taking neb treatments and began coughing and passed out approximately 5 times, therefore he presented to the emergency room. He is on chronic steroids for his asthma and he stated he did take approximately 60 mg of steroids before he left his house. He was also given IV steroids in the emergency room along with a neb treatment and this helped tremendously. He stated he felt much better the am after admission and had not passed out. His coughing had improved as had his wheezing and he was anxious to go home. He had a respiratory panel that was positive for rhino/enterovirus. He was started on some Zithromax when admitted. 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 The rhino/enterovirus seemed to have exacerbated his asthma. He was stable to be discharged home on a tapering dose of steroids and neb treatments. Discharge medications: Stop taking the following medications: Prednisone (Prednisone 5MG) 5 MG TABLET ORAL DAILY Continue taking these medications: Simvastatin (Simvastatin 40MG Tab) 40 MG TABLET 40 MILLIGRAM ORAL AT BEDTIME NIGHTLY Montelukast Sodium (Singulair) 10 MG TABLET 10 MILLIGRAM ORAL AT BEDTIME NIGHTLY LEVOCETIRIZINE DIHYDROCHLORIDE (Xyzal) 5 MG TABLET 5 MILLIGRAM ORAL AT BEDTIME NIGHTLY Azelastine Hcl (Azelastine Nasal [place]) 137 MCG/0.137 ML SPRAY.PUMP 1 SPRAY Nasal DAILY FLUTICASONE/SALMETEROL (Advair 500-50 Diskus) 1 EACH BLST.W.DEV 1 PUFF IN VITRO TWICE A DAY Omalizumab (Xolair) 150 MG VIAL 150 MILLIGRAM Subcutaneous Injection Q2 WEEKS ALBUTEROL (Albuterol 0.083% Neb) 2.5 MG/3 ML NEB 2.5 MILLIGRAM INHALATION (NEB) QID,PRN Levothyroxine Sodium (Levothyroxine 0.15MG) 150 MCG TABLET 0.15 MILLIGRAM ORAL DAILY Start taking the following new medications: Prednisone (Prednisone 20MG) 20 MG TABLET 20 MILLIGRAM ORAL TWICE A DAY Qty = 12 No Refills Disposition: F/U with: Hilda Corley Follow up: 6 DAYS Activity: Cont Current activity Diet: Continue same diet Discharge to: HOME Agency needed? N at 1607
== END 2017-05-12 14:15 | disposition home or self-care (01) ==
LOC: ER 22:12 → 2ND 05-12 00:39
PROVIDERS: Emergency Medicine
DX: J45.901 Unspecified asthma with (acute) exacerbation (principal); R05 Cough; Z72.0 Tobacco use; R55 Syncope and collapse
CPT/HCPCS: G0378; J0456

== ENCOUNTER 2017-06-07 10:35 | Outpatient (CLI) | payer BC ==
[~2017-06-07 10:35] MED LIST changes: +ADVAIR DISK28 PUFFS IN; +ALBUTEROL2.5 MG/NEB INH; +AZELASTINE137 MCG/SP; +LEVOTHYROXINE0.15 MG PO; +PREDNISONE 20MG20 MG PO; +XOLAIR150 MG SC; +XYZAL5 MG PO
[2017-06-07] MEDS ORDERED: PREDNISONE 5MG.5 MG PO (10:52)
== END 2017-06-07 11:05 | disposition home or self-care (01) ==
LOC: COP 10:35
DX: J45.909 Unspecified asthma, uncomplicated (principal)

== ENCOUNTER 2017-06-08 12:20 | Outpatient (CLI) | payer BC ==
[2017-06-08 12:05] VITALS: BP 135/73
== END 2017-06-08 13:40 | disposition home or self-care (01) ==
LOC: COP 12:20
DX: J45.909 Unspecified asthma, uncomplicated (principal)
CPT/HCPCS: J2357

== ENCOUNTER 2017-06-20 10:45 | Outpatient (CLI) | payer BC | END 2017-06-20 11:25 | disposition home or self-care (01) | LOC: COP 10:45 | DX: J45.909 Unspecified asthma, uncomplicated (principal) | CPT/HCPCS: J2357 ==